=== PATIENT | male | born 1955 | race Caucasian/White ===

== ENCOUNTER 2019-03-18 12:36 | Inpatient (IN) ==
[2019-03-18] MEDS ORDERED: MORPHINE IV ONE (13:07)
--- NOTE | 2019-03-18 13:28 | Diag Imaging Result Doc PS360 ---
EXAM: FEMUR MIN 2 VIEWS RIGHT 03/18/2019 HISTORY: fall, stump injury TECHNIQUE: Right femur two views COMMENT: There has been [id number] amputation. There is no evidence of acute fracture or dislocation. There is extensive atherosclerotic calcification in the external iliac common femoral and superficial femoral arteries. IMPRESSION: No acute bony abnormality. Electronically signed by Nikolai Piedra 03/18/2019 1:26 PM
[2019-03-18 13:50] LABS: BASO# 0.05 X1000 (0.0-0.2); BASO% 0.4 % (0.0-0.8); EOS# 0.08 X1000 (0.0-0.7); EOS% 0.7 % (0.0-10.0); HEMATOCRIT 27.6 % (42.0-52.0); HEMOGLOBIN 8.5 g/dL (14.0-18.0); IMM GRAN# 0.09 X1000 (0.0-0.04); IMM GRAN% 0.7 % (0.0-0.5); LYMPH# 2.18 X1000 (1.2-3.4); LYMPH% 17.9 % (20.5-51.1); MCH 23.9 PG (27-31); MCHC 30.8 g/dL (33-37); MCV 77.7 FL (81-99); MONO# 1.12 X1000 (0.11-0.59); MONO% 9.2 % (1.7-9.3); MPV 8.3 FL (7.4-10.4); NEUT# 8.66 X1000 (1.4-6.5); NEUT% 71.1 % (42.2-75.2); PLT 451 X1000 (130-400); RBC 3.55 XMIL (4.7-6.1); RDW 17.3 % (11.5-14.5); WBC 12.18 X1000 (4.8-10.8)
[2019-03-18 14:47] LABS: AGAP 9; ALB/GLOB RATIO 0.7; ALBUMIN 2.9 g/dL (3.5-5.0); ALKALINE PHOSPHATASE 103 U/L (32-122); BUN 9 mg/dL (8-22); CALCIUM 8.4 mg/dL (8.8-10.2); CHLORIDE 92 mmol/L (98-107); COSMO 253; CREATININE 0.4 mg/dL (0.7-1.2); ESTIMATED GFR > 60; GLUCOSE 90 mg/dL (70-104); GOT 15 U/L (10-34); GPT 8 U/L (10-44); POTASSIUM 4.5 mmol/L (3.5-5.1); SODIUM 127 mmol/L (136-145); TCO2 26 mmol/L (25-35); TOTAL BILIRUBIN 0.21 mg/dL (0.20-1.00)
[2019-03-18 14:59] LABS: INR 1.06; PROTIME 13.9 Seconds (11.0-16.0)
[2019-03-18 15:00] LABS: PTT 36.3 Seconds (22.3-41.8)
--- NOTE | 2019-03-18 15:45 | Diag Imaging Result Doc PS360 ---
EXAM: CHEST-1 VIEW INDICATION: sepsis protocol TECHNIQUE: One view COMPARISON: 02/09/2019 FINDINGS: There is right basilar atelectasis and/or infiltrate and probably fibrosis at the right lung base as well. This is similar to the previous study. There is no discrete pleural fluid collection or pneumothorax. There is a right hilar masslike lesion that has been seen on a few of the recent prior radiographs and is grossly unchanged. Cardiac silhouette is unremarkable. IMPRESSION: 1.Right basilar atelectasis and/or infiltrate and probably a component of fibrosis that is similar to the previous study. 2.Masslike right hilar lesion seen on previous studies appears to be stable. Electronically signed by Sriram Ross 03/18/2019 3:42 PM
--- NOTE | 2019-03-18 16:37 | Diag Imaging Result Doc PS360 ---
EXAM: CT EXT LOWER RIGHT W/O CON INDICATION: r/o osteo TECHNIQUE: COMPARISON: None. FINDINGS: There has been a prior aolqn-[id number]-[id number] amputation. There is demineralization of the visualized portion of the femur that is likely due to the nonweightbearing. There is some irregularity at the site of the amputation at the femoral stump. However, this can simply be postsurgical. By CT, osteomyelitis cannot be excluded. The cortex of the stump posteriorly is very near the skin surface and a bone may be exposed. If so, there is very likely osteomyelitis. There is soft tissue edema at the stump indicating osteomyelitis. There is extensive atherosclerotic calcification. IMPRESSION: Prior amputation of the right leg [id number] with irregularity at the bony stump that could be postsurgical. However, I suspect that there is osteomyelitis as there is soft tissue edema at the stump and the cortex of the bone is very near the skin surface if it is not already exposed. Electronically signed by Sriram Ross 03/18/2019 4:35 PM
[2019-03-18 16:41] LABS: URINE SOURCE CLEAN CATCH
[2019-03-18 16:52] LABS: BILIRUBIN URINE NEGATIVE (NEGATIVE); BLOOD URINE NEGATIVE (NEGATIVE); COLOR YELLOW; GLUCOSE URINE NEGATIVE (NEGATIVE); KETONE URINE NEGATIVE (NEGATIVE); LEUKOCYTES URINE NEGATIVE (NEGATIVE); NITRITE URINE NEGATIVE (NEGATIVE); PROTEIN URINE NEGATIVE (NEGATIVE); TURBIDITY URINE CLEAR (CLEAR); UR EPITHELIAL CELLS <10 /HPF (<10); URINE BACTERIA NEGATIVE /HPF; URINE RBC <10 /HPF (<10); URINE WBC <10 /HPF (<10); UROBILINOGEN URINE NORMAL (NORMAL)
--- NOTE | 2019-03-18 17:13 | PROVIDER DOCUMENTATION ---
This chart was entered by Sarah Marie Scribe, acting as scribe for Nilesh Gipson MD. HPI-Rash/Wound/ReCheck - General Chief Complaint: Sores/Lesions Stated Complaint: SORE ON RT KNEE Time Seen by Provider: 03/18/19 12:53 Source: patient, family Allergies/Adverse Reactions: Allergies Allergy/AdvReac Type Severity Reaction Status Date / Time No Known Allergies Allergy Verified 03/18/19 12:50 Home Medications: Home Medication List Medication Instructions Recorded Confirmed Last Taken Type Hydrocodone/Acetaminophen 1 tab PO TID 02/09/19 03/18/19 03/18/19 History [Hydrocodone-Acetamin 10-325 mg] Levetiracetam 500 mg PO BID 03/18/19 03/18/19 03/18/19 History - History of Present Illness-Dermatology Nature of Presenting Problem: 63 yowm presents to the ed with family. pt sts had a fall and hit hit RAKA stump 2 weeks prior and has ulceration with drainage that will not heal. pt has lung cancer that has mets and last radiation was 02/25/19. pt has norco at home but stsis not helping with pain Location: reports: lower extremity (rt stump) Quality: reports: painful Severity: reports: moderate Onset/Duration: reports: other (2 weeks) Timing: reports: still present, constant, getting worse Context/Associated Symptoms: reports: tender area (with ulceration) Identifiable cause?: Yes (fall) Locality of [place]: Home Similar Symptoms Previously?: Yes Recently seen or treated by another doctor?: Yes Review of Systems - Adult - REVIEW OF SYSTEMS - ADULT Constitutional: denies: chills, fever Eyes: reports: no symptoms reported Ears, Nose, Mouth & Throat: reports: no symptoms reported Cardiovascular: denies: chest pain, palpitations Respiratory: denies: cough, shortness of breath, wheezing Gastrointestinal: denies: diarrhea, nausea, vomiting Genitourinary: reports: no symptoms reported Musculoskeletal: reports: no symptoms reported Integumentary: reports: see HPI, skin sores/ulcer Neurological: reports: no symptoms reported Psychiatric: reports: no symptoms reported Endocrine: reports: no symptoms reported Hematologic/Lymphatic: reports: no symptoms reported Allergic/Immunologic: reports: no symptoms reported All Other Systems: Reviewed and Negative Past History - Adult - PAST MEDICAL HISTORY-ADULT Review of Records: reports: Old Records Reviewed, Nursing Assessment Review, Medications Reviewed, Social history reviewed & non-contributory. Major Childhood Illnesses: reports: denies history Cardiovascular: reports: denies history Respiratory: reports: asthma, COPD, cancer (lung with mets), pneumonia, sleep a pnea Gastrointestinal: reports: GERD Genitourinary: reports: denies history Musculoskeletal: reports: arthritis, chronic pain Neurological: reports: denies history Psychiatric: reports: denies history Endocrine/Immune: reports: immunosuppression Other Conditions: reports: denies history Additional History: lung cancer with mets - PRIOR SURGERIES/PROCEDURES Surgical/Procedure History: reports: appendectomy, orthopedic (extremity) (RAKA) - IMMUNIZATION STATUS Childhood Immunizations: See Nurse Assessment Flu Vaccine: See Nurse Assessment - FAMILY HISTORY Family History: reviewed, not pertinent - SOCIAL HISTORY Smoking: cigarettes, greater than 1 pack/day Provider spent 3-5 mins advising pt. on dangers of tobacco.: Discussed manners to quit use, and f/u contacts for add'l counseling. Substance Use: alcohol Alcohol Use Frequency: every day Number of drinks per typical drinking period:: 5-10 drinks Living Situation: family Physical Exam-General - PHYSICAL EXAM-ADULT Initial Vital Signs Reviewed: Yes - CONSTITUTIONAL General Appearance: appears well, alert, no apparent distress, thin - EYES Eyes: PERRL/EOMI, pink conjunctivae - HEAD, EARS, NOSE, MOUTH & THROAT HENMT: moist mucous membranes, dental decay - NECK Neck: full range of motion, normal inspection - RESPIRATORY Respiratory: chest non-tender, lungs clear, normal breath sounds - CARDIOVASCULAR Cardiovascular: tachycardia (116) - CHEST (BREASTS) Chest/Breast: deferred - GASTROINTESTINAL (ABDOMEN) Abdominal Exam: normal bowel sounds, non tender, soft - GENITOURINARY Male Genitalia: deferred Rectal Exam: deferred Hemoccult Exam: deferred - MUSCULOSKELETAL Back Exam: no CVA tenderness, no vertebral tenderness Extremity: normal range of motion, tenderness (rt stump), other (RAKA with ulce ration noted to stump) - SKIN Integumentary: swelling (rt stump with ulceration), tenderness (rt stump) - NEUROLOGIC Neurologic: grossly normal - PSYCHIATRIC Psych/Mental Status: normal mood/affect, normal thought content, normal thought process, oriented x 3 Progress - PLAN OF CARE/RESULTS Progress/Plan/Lab Results: Vital Signs - 8 hr 12/20/19 12:40 Temperature 97.6 F Pulse Rate 116 H Respiratory Rate 18 Blood Pressure 106/56 O2 Sat by Pulse Oximetry 95 Laboratory Results - last 24 hr 03/18/19 03/18/19 03/18/19 13:30 13:30 13:30 WBC 12.18 H RBC 3.55 L Hgb 8.5 L Hct 27.6 L MCV 77.7 L MCH 23.9 L MCHC 30.8 L RDW Std Deviation 17.3 H Plt Count 451 H MPV 8.3 Immature Gran % (Auto) 0.7 H Neut % (Auto) 71.1 Lymph % (Auto) 17.9 L [place] % (Auto) 9.2 Eos % (Auto) 0.7 Baso % (Auto) 0.4 Immature Gran # (Auto) 0.09 H Neut # (Auto) 8.66 H Lymph # (Auto) 2.18 [place] # (Auto) 1.12 H Eos # (Auto) 0.08 Baso # (Auto) 0.05 ESR 121 H PT INR PTT (Actin FS) Sodium 127 L Potassium 4.5 Chloride 92 L Carbon Dioxide 26 Anion Gap 9 BUN 9 Creatinine 0.4 L Estimated GFR/1.73 m2 > 60 BUN/Creatinine Ratio 23 Glucose 90 Calculated Osmolality 253 Calcium 8.4 L Total Bilirubin 0.21 AST 15 ALT 8 L Alkaline Phosphatase 103 Creatine Kinase Troponin T Total Protein 7.0 Albumin 2.9 L Globulin 4.1 Albumin/Globulin Ratio 0.7 Plasma Lactate Urine Source Urine Color Urine Turbidity Urine pH Ur Specific [place] Urine Protein Ur Glucose (Stick) Ur Ketones (Stick) Urine Blood Urine Nitrite Urine Bilirubin Urobilinogen Dipstick Urine Leukocytes Urine WBC (Auto) Urine RBC (Auto) U Epithel Cells (Auto) Urine Bacteria (Auto) 03/18/19 03/18/19 03/18/19 13:30 13:30 13:30 WBC RBC Hgb Hct MCV MCH MCHC RDW Std Deviation Plt Count MPV Immature Gran % (Auto) Neut % (Auto) Lymph % (Auto) [place] % (Auto) Eos % (Auto) Baso % (Auto) Immature Gran # (Auto) Neut # (Auto) Lymph # (Auto) [place] # (Auto) Eos # (Auto) Baso # (Auto) ESR PT 13.9 INR 1.06 PTT (Actin FS) 36.3 Sodium Potassium Chloride Carbon Dioxide Anion Gap BUN Creatinine Estimated GFR/1.73 m2 BUN/Creatinine Ratio Glucose Calculated Osmolality Calcium Total Bilirubin AST ALT Alkaline Phosphatase Creatine Kinase 22 L Troponin T < 0.010 Total Protein Albumin Globulin Albumin/Globulin Ratio Plasma Lactate Urine Source Urine Color Urine Turbidity Urine pH Ur Specific [place] Urine Protein Ur Glucose (Stick) Ur Ketones (Stick) Urine Blood Urine Nitrite Urine Bilirubin Urobilinogen Dipstick Urine Leukocytes Urine WBC (Auto) Urine RBC (Auto) U Epithel Cells (Auto) Urine Bacteria (Auto) 03/18/19 03/18/19 15:10 16:37 WBC RBC Hgb Hct MCV MCH MCHC RDW Std Deviation Plt Count MPV Immature Gran % (Auto) Neut % (Auto) Lymph % (Auto) [place] % (Auto) Eos % (Auto) Baso % (Auto) Immature Gran # (Auto) Neut # (Auto) Lymph # (Auto) [place] # (Auto) Eos # (Auto) Baso # (Auto) ESR PT INR PTT (Actin FS) Sodium Potassium Chloride Carbon Dioxide Anion Gap BUN Creatinine Estimated GFR/1.73 m2 BUN/Creatinine Ratio Glucose Calculated Osmolality Calcium Total Bilirubin AST ALT Alkaline Phosphatase Creatine Kinase Troponin T Total Protein Albumin Globulin Albumin/Globulin Ratio Plasma Lactate 0.7 Urine Source CLEAN CATCH Urine Color YELLOW Urine Turbidity CLEAR Urine pH 7.0 Ur Specific [place] 1.010 Urine Protein NEGATIVE Ur Glucose (Stick) NEGATIVE Ur Ketones (Stick) NEGATIVE Urine Blood NEGATIVE Urine Nitrite NEGATIVE Urine Bilirubin NEGATIVE Urobilinogen Dipstick NORMAL Urine Leukocytes NEGATIVE Urine WBC (Auto) <10 Urine RBC (Auto) <10 U Epithel Cells (Auto) <10 Urine Bacteria (Auto) NEGATIVE Orders Category Date Time Status Cardiac Monitoring DIRECTED Care 03/18/19 14:39 Active IV Insertion ORDERED Care 03/18/19 14:39 Completed Notify MD of + Sepsis Screen NOW Care 03/18/19 14:39 Active Notify Physician As Ordered Care 03/18/19 14:39 Active CHEST-1 VIEW [RAD] Stat Exams 03/18/19 14:[address] EXT LOWER RIGHT W/O CON [CT] Stat Exams 03/18/19 15:52 Completed FEMUR MIN 2 VIEWS RIGHT [RAD] Stat Exams 03/18/19 13:06 Completed BLOOD CULTURE [BLDCUL] Stat Lab 03/18/19 14:35 Results CBC WITH DIFF [HEME] Stat Lab 03/18/19 13:30 Completed CK PROFILE [SP CHEM] Stat Lab 03/18/19 13:30 Completed CMP [COMPREHENSIVE METABOLIC PANEL] [CHEM] Stat Lab 03/18/19 13:30 Completed LACTATE, PLASMA [CHEM] Lab 03/18/19 17:45 Uncollected LACTATE, PLASMA [CHEM] Lab 03/18/19 20:45 Uncollected LACTATE, PLASMA [CHEM] Q3H Lab 03/18/19 15:10 Completed PROTIME WITH INR [COAG] Stat Lab 03/18/19 13:30 Completed PTT [COAG] Stat Lab 03/18/19 13:30 Completed SED RATE [HEME] Stat Lab 03/18/19 13:30 Completed TROPONIN T Stat Lab 03/18/19 13:30 Completed URINALYSIS W/POSS RFLX CULT [URINALYSIS] Stat Lab 03/18/19 16:37 Completed Morphine Med 03/18/19 13:07 Discontinued 4 mg IV NOW ONE Oxygen Device Stat Oth 03/18/19 14:39 Active Result Diagrams: 03/18/19 13:30 03/18/19 13:30 - XRAY 1 XRAY: Right XRAY Study: Femur Impression: See EMR Report (EXAM: FEMUR MIN 2 VIEWS RIGHT 03/18/2019 HISTORY: fall, stump injury TECHNIQUE: Right femur two views COMMENT: There has been emair-sqk-pygc amputation. There is no evidence of acute fracture or dislocation. There is extensive atherosclerotic calcification in the external iliac common femoral and superficial femoral arteries. IMPRESSION: No acute bony abnormality. Electronically signed by Nikolai Piedra 03/18/2019 1:26 PM 03/18/19 1326 Interpreting Physician: Nikolai Piedra MD Dictated Date/Time: 03/18/19 1325 cc: Nilesh Gipson MD; Ortiz Vazquez MD) 2 XRAY: Bilateral XRAY Study: Chest Impression: See EMR Report (EXAM: CHEST-1 VIEW INDICATION: sepsis protocol TECHNIQUE: One view COMPARISON: 02/09/2019 FINDINGS: There is right basilar atelectasis and/or infiltrate and probably fibrosis at the right lung base as well. This is similar to the previous study. There is no discrete pleural fluid collection or pneumothorax. There is a right hilar masslike lesion that has been seen on a few of the recent prior radiographs and is grossly unchanged. Cardiac silhouette is unremarkable. IMPRESSION: 1.Right basilar atelectasis and/or infiltrate and probably a component of fibrosis that is similar to the previous study. 2.Masslike right hilar lesion seen on previous studies appears to be stable. Electronically signed by Sriram Ross 03/18/2019 3:42 PM 03/18/19 1542 Interpreting Physician: Sriram Ross MD Dictated Date/Time: 03/18/19 1540 cc: Nilesh Gipson MD; Ortiz Vazquez MD) - CT/MRI 1 CT Study: Lower Ext Impression: See EMR Report (EXAM: CT EXT LOWER RIGHT W/O CON INDICATION: r/o osteo TECHNIQUE: COMPARISON: None. FINDINGS: There has been a prior aeeyb-cex-cuim amputation. There is demineralization of the visualized portion of the femur that is likely due to the nonweightbearing. There is some irregularity at the site of the amputation at the femoral stump. However, this can simply be postsurgical. By CT, osteomyelitis cannot be excluded. The cortex of the stump posteriorly is very near the skin surface and a bone may be exposed. If so, there is very likely osteomyelitis. There is soft tissue edema at the stump indicating osteomyelitis. There is extensive atherosclerotic calcification. IMPRESSION: Prior amputation of the right leg [id number] with irregularity at the bony stump that could be postsurgical. However, I suspect that there is osteomyelitis as there is soft tissue edema at the stump and the cortex of the bone is very near the skin surface if it is not already exposed. Electronically signed by Sriram Ross 03/18/2019 4:35 PM 03/18/19 1635 Interpreting Physician: Sriram Ross MD Dictated Date/Time: 1 05/19/18 1626 cc: Nilesh Gipson MD; Ortiz Vazquez MD) - CONSULTS/PCP/HOSPITALIST Notification #1 *Consult/PCP/Hospitalist*: hospitalist Time Discussed: 17:10 (spoke with dona) Consult Disposition: Admit Departure - Departure Date of Disposition Decision: 03/18/19 Time of Disposition Decision: 17:12 DIAGNOSIS: Osteomyelitis of right femur Disposition: ADMITTED INPATIENT 09 Certified Medical Emergency: Emergent Condition: Good Additional Instructions: ED Follow Up Instructions: You have been treated by a care provider in the Emergency Department. These instructions are being provided to you so you can have an understanding of how to care for yourself upon discharge. Upon discharge from the Emergency Department, you are responsible for making arrangements for follow-up care by a physician of your choice. Take all prescribed medications as directed. Return to the Emergency Department immediately for any new or worsening symptoms. You may call the Physician Referral phone number at [phone] to obtain a list of Physicians who are taking new patients. Referrals and Follow-Ups: Ortiz Vazquez MD [Primary Care Provider] - Discharge Education: Steps to Quit Smoking, Vusc-kf-Szkd - Critical Care Note This patient required my direct & personal management of CC.: No Attestation - Physician/ EDGAR Attestation Patient care was provided by Advanced Practice Provider:: No The physician spent face to face time with patient:: Yes Advanced Practice Provider documentation review:: Supervising physician onsite and consulted in the evaluation and care of this patient. The physician did have a face to face encounter with the patient. This chart was documented by the indicated scribe, (Sarah Marie Scribe) and accurately reflects the services I performed and decisions made by me, Nilesh Gipson MD, as attested by the provider's signature.
[2019-03-18] MEDS ORDERED: VANCOMYCIN IV PER PHARMACY MISC SCH (17:15)
[2019-03-18] MEDS ORDERED: TYLENOL PO PRN ×2 (18:28→18:37)
[2019-03-18] MEDS ORDERED: ZOFRAN IV PRN ×2 (18:28→18:37)
[2019-03-18] MEDS ORDERED: DILAUDID IV ONE (18:52)
[2019-03-18] MEDS ORDERED: VANCOMYCIN 1,500 MG in NS 250 ML IV ONE (20:00)
--- NOTE | 2019-03-18 20:29 | HISTORY AND PHYSICAL ---
PRIMARY CARE PHYSICIAN: Dr. Vazquez. CHIEF COMPLAINT: Of a fall 2 weeks ago hitting his right AKA now has an ulceration to the posterior AKA with drainage to the area also noted. HISTORY OF PRESENTING ILLNESS: This is a 63-year-old male who presents to [facility] with complaints of an ulceration to his right AKA to the posterior underside with some drainage after he fell 2 weeks ago and the area has progressively worsened. We did a CT of the lower extremity that showed the prior amputation of the right leg above the knee with irregularity at the bony stump that could be postsurgical, however I suspect that there is osteomyelitis as there is soft tissue edema at the stump and the cortex of the bone is very near the skin surface if it is not already exposed. His laboratory data showed a white blood cell count of 12.18, his sodium was 127 so he will be admitted for further evaluation and treatment. PAST MEDICAL HISTORY: 1. He is currently being treated for lung cancer with metastases to the bone, brain and neck, last treatment 02/25/2019 and is scheduled for a treatment on Thursday with his oncologist . 2. COPD, sleep apnea, GERD, chronic pain and immunosuppression and seizures. PAST SURGICAL HISTORY: Appendectomy and a right AKA. FAMILY HISTORY: Reviewed and noncontributory. SOCIAL HISTORY: Currently lives with family. He was a 2 pack a day smoker up until December of this year and has decreased down to 1 pack a day. He was a 6 pack of beer day drinker up until December and then now he only drinks occasionally. Illicit drug use none. ALLERGIES: He has no known drug allergies. HOME MEDICATIONS: A current list will need to be obtained, reconciled, reviewed and restarted as appropriate. Will place an order for nursing to update and confirm home medications. LABORATORY DATA: Showed a white blood cell count of 12.18, hemoglobin 8.5, hematocrit 27.6, platelets 451,000. PT and INR 13.9 and 1.06. Sodium of 127, potassium 4.5, chloride 92, CO2 26, BUN of 9, creatinine 0.4, glucose of 90. Cardiac enzyme was negative. Plasma lactate of 0.7. Urinalysis was negative. Right femur x-ray showed no acute bony abnormality. Chest x-ray showed right basilar atelectasis and/or infiltrate and probably a component of fibrosis that is similar to the previous study and a masslike right hilar lesion seen on the previous study appears to be stable. Right lower extremity CT showed an impression of a prior amputation of the right leg above the knee with irregularity at the bony stump that could be postsurgical however it is suspected of osteomyelitis as there is soft tissue edema at the stump and the cortex of the bone is very near the skin surface if it is not already exposed. REVIEW OF SYSTEMS: He denied any fever, chills, blurred vision, dizziness, chest pain, coughing, shortness of breath. He denied any abdominal pain, constipation, diarrhea, burning or hurting with urination. He does have pain to his right AKA area where the ulceration is. PHYSICAL EXAMINATION: On arrival he had a temperature of 97.6 degrees, pulse 116, respirations 18, blood pressure 106/56, saturating 95% on room air. GENERAL: This is a 63-year-old male who is sitting up in the bed and answers questions appropriately. HEENT: Normocephalic, atraumatic. Normal ENT inspection. Oropharynx and nares are clear. Pupils are equal, round, reactive to light and accommodation. Extraocular movements are intact. NECK: The patient is noted to have a tumor and growth on the right side of his neck that is the metastasis of his cancer. Normal range of motion noted. LUNGS: Clear to auscultation bilaterally with equal lung expansion and chest wall movement. HEART: Some mild tachycardia noted but no murmurs, rubs, or gallops. ABDOMEN: Soft, nontender, nondistended. Bowel sounds are present x4 quadrants. EXTREMITIES: He has a right AKA that has an ulceration to the end and posterior area of the stump with some surrounding erythema, some mild drainage noted as well, tenderness to palpation, otherwise moves extremities well. NEUROLOGICAL: The cranial nerves 2-12 appear grossly intact. ASSESSMENT: 1. Status post fall 2 weeks ago. 2. A right above-knee amputation ulceration with possible osteomyelitis. 3. Mild leukocytosis. 4. Hyponatremia. 5. Tobacco abuse. OUR PLAN: He will be admitted to the surgical unit, placed on telemetry. Will consult Infectious Disease and surgery. Placed on a diabetic diet. Place him on vancomycin per pharmacy protocol, Zosyn 3.375 g IV q.6, will do a wound culture, will do serial lactates. Check a TSH in the a.m. and a CBC, CMP. Further orders after seen by attending. Dictated by LUKE Coleman for Kolton Cao MD cc: LUKE Coleman MD Dr. Awoniyi
[2019-03-18] MEDS ORDERED: KEPPRA PO SCH (21:00)
[2019-03-18] MEDS ORDERED: NORCO-10 PO SCH (21:00)
[2019-03-18] MEDS: KEPPRA PO SCH (21:50)
[2019-03-18] MEDS: NORCO-10 PO SCH (22:10)
--- NOTE | 2019-03-18 22:25 | HISTORY AND PHYSICAL ---
The patient came in because he has a nonhealing ulcer on his right AKA stump. He is 63. He has a history of lung cancer with diffuse metastasis. I do not know if it is lung or a lymphoma. He still smokes. He is getting active chemo with Keytruda. He has a neck mass. In any case, he has extensive metastases and is getting treatment, but he fell and injured his right AKA stump area about 2 weeks ago. He has got an open ulceration with a dry kind of wound, and there is suggestion of osteo on the tip of his stump. Dr. Welhc has worked on him previously. He will be admitted for IV antibiotics and decision about debridement versus long-term IV antibiotics. We will get a surgical consult and ID consult. This is a [id number] encounter note with Helga Murrell. cc: Kolton Cao MD
[2019-03-19] MEDS: ZOSYN 3.375 GM in NS 50 ML IV SCH ×4 (00:15→18:10)
[2019-03-19] MEDS: DILAUDID IV PRN ×2 (00:20→05:40)
[2019-03-19 07:03] LABS: BASO# 0.05 X1000 (0.0-0.2); BASO% 0.5 % (0.0-0.8); EOS# 0.07 X1000 (0.0-0.7); EOS% 0.7 % (0.0-10.0); HEMATOCRIT 26.8 % (42.0-52.0); HEMOGLOBIN 8.1 g/dL (14.0-18.0); IMM GRAN# 0.06 X1000 (0.0-0.04); IMM GRAN% 0.6 % (0.0-0.5); LYMPH% 15.1 % (20.5-51.1); MCH 23.6 PG (27-31); MCHC 30.2 g/dL (33-37); MCV 78.1 FL (81-99); MONO# 0.93 X1000 (0.11-0.59); MONO% 9.3 % (1.7-9.3); MPV 8.4 FL (7.4-10.4); NEUT# 7.35 X1000 (1.4-6.5); NEUT% 73.8 % (42.2-75.2); PLT 428 X1000 (130-400); RBC 3.43 XMIL (4.7-6.1); RDW 17.3 % (11.5-14.5); WBC 9.96 X1000 (4.8-10.8)
[2019-03-19 07:24] LABS: AGAP 10; ALB/GLOB RATIO 0.7; ALBUMIN 2.5 g/dL (3.5-5.0); ALKALINE PHOSPHATASE 92 U/L (32-122); BUN 5 mg/dL (8-22); CALCIUM 7.6 mg/dL (8.8-10.2); CHLORIDE 95 mmol/L (98-107); COSMO 259; CREATININE 0.3 mg/dL (0.7-1.2); ESTIMATED GFR > 60; GLUCOSE 84 mg/dL (70-104); GOT 12 U/L (10-34); GPT 6 U/L (10-44); POTASSIUM 4.2 mmol/L (3.5-5.1); SODIUM 131 mmol/L (136-145); TCO2 26 mmol/L (25-35); TOTAL PROTEIN 6.3 g/dL (6.3-8.3)
[2019-03-19] MEDS: VANCOMYCIN 1,100 MG in NS 250 ML IV SCH ×2 (10:52→22:34)
[2019-03-19] MEDS: KEPPRA PO SCH ×2 (11:07→22:35)
[2019-03-19] MEDS: NORCO-10 PO SCH ×3 (11:07→22:20)
[2019-03-19] MEDS: NS 1,000 ML IV SCH (11:07)
--- NOTE | 2019-03-19 19:13 | CONSULTATION ---
DATE OF CONSULTATION: 03/19/2019 Mr. Bob Mejia is a 63-year-old white male who is admitted through the emergency department with pain and redness involving his right teegw-tis-ksyt amputation stump. He was brought by his family and states that the patient had a fall and hit his right tgmtt-nwy-quzu amputation stump 2 weeks prior to his presentation which created an ulcer and some drainage from that area that will not heal. He was admitted by our hospitalist and we were asked to evaluate his right hhkhn-eqk-tuet amputation stump. PAST MEDICAL HISTORY: He has lung cancer with metastatic disease. He had radiation 02/25/2019. He has asthma, COPD, pneumonia, gastroesophageal reflux disease, arthritis with chronic pain, immunosuppression, he has an appendectomy and right onmva-klp-oows amputation. He has also had a femoral-femoral arterial bypass graft by Dr. Welch. SOCIAL HISTORY: Continues to smoke at least a pack of cigarettes a day. Uses alcohol daily. FAMILY HISTORY: Was reviewed is noncontributory. REVIEW OF SYSTEMS: A 14-point review of systems was reviewed and was negative except for the history of present illness. PHYSICAL EXAMINATION: On exam, his temperature is 97.6 degrees, pulse rate was 116, blood pressure 106/56, O2 saturation 95%. He is 5 feet 6 inches, weighs 108 pounds. Mr. Mejia is a small, slim male who is awake, cooperative. He has a right lhzvg-wlr-rkmn amputation. He still has his left lower extremity. He has no jaundice. No oral lesions. No cervical or supraclavicular lymphadenopathy. His heart has a regular rate. Lungs had some expiratory wheezing. He had no significant shortness of breath. His abdomen was soft, nontender without palpable mass. He has scars in both groins. He has a palpable femoral-femoral arterial bypass graft. I am not sure if there is flow in this graft. I did not feel pulse. I do not feel right femoral pulse. I do feel pulse on the left femoral area. He has his left leg without evidence of any ischemic ulcers. His right ekbfi-dem-smkw amputation stump has an ulcer at the end of the stump and redness and pain. Neurologically, he has no focal deficit. IMPRESSION: Chronic open wound with pain and now redness at the end of his right jitjy-lmr-rpqm amputation stump. He has a history of femoral-femoral arterial bypass graft. I could not feel a pulse on the right groin but his right uihjb-pxz-ydui amputation stump is warm and the skin has hair involving it. PLAN: He will need revision of his right pjdzj-jub-fuge amputation stump most likely by bringing it higher and removing more of the femur. I will notify Dr. Welch of his admission this coming Thursday. In the meantime, I agree with IV antibiotics and local wound care. His white blood cell count is normal today, his hematocrit is 27%. Electrolytes are within normal limits. cc: Dominique Marie MD
--- NOTE | 2019-03-19 23:55 | PROGRESS NOTE ---
DATE: 03/19/2019 SUBJECTIVE: The patient seems sleepy. He is not as upset. Pain seems under control. OBJECTIVE: Blood pressure 93/58, heart rate of 80, respiratory rate 19, temperature 98 degrees, afebrile.Cardiovascular: Regular rate and rhythm. Pulmonary: Bilateral breath sounds, clear to auscultation. GI: Soft, nontender, nondistended. Bowel sounds are positive. LABORATORY DATA: White count 9.9, hemoglobin and hematocrit 8 and 26, platelets 428,000. Sodium is up to 131 from 127. Microbiology has not grown out anything yet. ASSESSMENT AND PLAN: 1. Right osteomyelitis. We will continue to monitor with antibiotics. I have consulted Dr. Marie, waiting on his final recommendations, but there was some discussion he would need surgery. He is on vancomycin and Zosyn for the time being. 2. Castleman disease, diffuse large B cell lymphoma. I think he is still getting treatment. We will continue to monitor that. 3. Disposition pending his clinical status. 4. Hypotension, may be related to protein-calorie malnutrition. We will continue to follow closely. cc: Kolton Cao MD
[2019-03-20] MEDS: ZOSYN 3.375 GM in NS 50 ML IV SCH ×3 (00:10→05:33)
[2019-03-20] MEDS: DILAUDID IV PRN ×2 (04:01→15:46)
[2019-03-20 07:25] LABS: BASO# 0.04 X1000 (0.0-0.2); BASO% 0.5 % (0.0-0.8); EOS# 0.09 X1000 (0.0-0.7); EOS% 1.2 % (0.0-10.0); HEMATOCRIT 25.4 % (42.0-52.0); HEMOGLOBIN 7.5 g/dL (14.0-18.0); IMM GRAN# 0.03 X1000 (0.0-0.04); IMM GRAN% 0.4 % (0.0-0.5); LYMPH# 1.46 X1000 (1.2-3.4); LYMPH% 19.3 % (20.5-51.1); MCH 23.4 PG (27-31); MCHC 29.5 g/dL (33-37); MCV 79.4 FL (81-99); MONO# 0.83 X1000 (0.11-0.59); MPV 8.2 FL (7.4-10.4); NEUT# 5.12 X1000 (1.4-6.5); NEUT% 67.6 % (42.2-75.2); PLT 396 X1000 (130-400); RDW 17.2 % (11.5-14.5); WBC 7.57 X1000 (4.8-10.8)
[2019-03-20 07:39] LABS: AGAP 9; BUN 6 mg/dL (8-22); CALCIUM 7.4 mg/dL (8.8-10.2); CHLORIDE 100 mmol/L (98-107); COSMO 265; CREATININE 0.6 mg/dL (0.7-1.2); ESTIMATED GFR > 60; GLUCOSE 85 mg/dL (70-104); POTASSIUM 3.8 mmol/L (3.5-5.1); SODIUM 134 mmol/L (136-145); TCO2 25 mmol/L (25-35)
[2019-03-20] MEDS: NORCO-10 PO SCH ×3 (07:57→14:56)
[2019-03-20] MEDS: KEPPRA PO SCH ×2 (09:33→21:22)
[2019-03-20] MEDS: MAXIPIME 1 GM in NS 50 ML IV SCH ×2 (09:37→21:22)
[2019-03-20] MEDS: NS 1,000 ML IV SCH ×3 (09:37→18:44)
[2019-03-20] MEDS: VANCOMYCIN 1,100 MG in NS 250 ML IV SCH (10:19)
--- NOTE | 2019-03-20 11:01 | INFECTIOUS DISEASE CONSULT REP ---
DATE: 03/20/2019 CONCLUSION: The patient has right leg osteomyelitis. The patient may have a right basilar pneumonia versus atelectasis. RECOMMENDATIONS: I agree with treating the patient with vancomycin. I have discontinued Zosyn, and started the patient on cefepime. I am doing this because there is some fairly recent evidence to show that the combination of vancomycin and Zosyn is more nephrotoxic than the combination of vancomycin and cefepime. I have ordered a noncontrasted CT scan of the chest to determine if the right basilar finding is either due to atelectasis or pneumonia. I am unable to obtain a history from the patient. He has metastatic lung cancer, which has involved the brain, and he has had surgery on his brain, and his memory is very poor, and he is pretty much unable to answer questions about his health. PRESENT ILLNESS: The patient is unable to provide a history. The information I did get was from the computer. He has developed an ulcerated area on the distal right leg, which has been amputated. The bone is palpable. The patient's CT scan also shows that there is osteomyelitis in the distal right leg. The patient's CBC shows a white count of 7570, hemoglobin 7.5, platelet count 396,000. Creatinine is 0.6, GFR is greater than 60. Urinalysis shows no white cells or bacteria. Blood cultures are negative. Culture from the right leg is pending. CT scan of the leg shows osteomyelitis. Chest x-ray shows a right hilar mass and a right basilar atelectasis/pneumonia. The patient's CBC shows a white count of 7570, hemoglobin 7.5, platelet count 396,000. Creatinine is 0.6. GFR is greater than 60. Urinalysis was negative for bacteria or white blood cells. Blood cultures are negative. Culture from the patient's right leg is pending. CT scan of the leg showed osteomyelitis. Chest x-ray shows a right hilar mass with a right basilar atelectasis/pneumonia. REVIEW OF SYSTEMS: I was unable to obtain that from the patient. PREVIOUS HOSPITALIZATIONS AND OPERATIONS: The patient has had an appendectomy, a right above-the- knee amputation, and a craniotomy due to metastatic brain tumor. MEDICAL DISEASES: Positive for metastatic lung cancer, chronic obstructive pulmonary disease, sleep apnea, gastroesophageal reflux disease, chronic pain, and seizures. FAMILY HISTORY: Unknown by the patient. SOCIAL HISTORY: The patient currently lives with his family. He smokes cigarettes. He also was a heavy consumer of alcoholic beverages, but he does not use illicit drugs. ALLERGIES: The patient has no known drug allergies. MEDICATIONS: Medications taken at home are hydrocodone and levetiracetam. PHYSICAL EXAMINATION: Vital Signs: Temperature is 98 degrees, pulse 86, respirations 14, blood pressure is 101/58. The patient is 5 feet 6 inches tall, and weighs 95 pounds. General: This is a chronically ill-appearing and malnourished, middle-aged male. He is in no acute distress. HEENT: He can hear my spoken words and see near objects. The left side of his head where he had his craniotomy is not showing any drainage or erythema. Neck: No meningismus. Lungs: Clear to auscultation. Cardiovascular: Heart rate is regular. Abdomen: Soft and nontender. Thorax: The patient has increased AP diameter of the chest. Abdomen: Soft and nontender. Neurologic: The patient is awake. He can move his extremities. There is no tremor. His memory as regarding his medical history was very poor. Extremities: Both legs and arms have marked loss of muscle. The right leg distally has an ulcerated area through which bone can be palpated, and there is some purulent drainage. Thank you for the consult. cc: Hemal Bernal MD
--- NOTE | 2019-03-20 11:09 | PROGRESS NOTE ---
DATE: 03/20/2019 SUBJECTIVE: Mr. Bob Aguilar is a 63-year-old white male who has metastatic lung cancer and is being treated for that with chemotherapy and actually his next round of chemotherapy is scheduled for this week. However, he fell on his right bqxpv-wnu-bxgr amputation stump. He has developed an open wound at the tip of the above the knee amputation stump with his femur at the base of this wound. He had surrounding cellulitis which is improved over the last 24 hours on IV antibiotics, but he still has pain and bone at the base of his wound. I feel that his right dqrqd-zqy-qnip amputation stump we will have to be the revised surgically. OBJECTIVE: His heart rate is 86, blood pressure 105/58. O2 saturation is 100%, and he is afebrile on IV antibiotics. DIAGNOSTIC DATA: His white blood cell count is now normal. His hematocrit is 25%. Electrolytes are within normal limits. PLAN: He has had a previous femoral-femoral arterial bypass graft by Dr. Welch. I could not feel a palpable femoral pulse, but it appears that he has good blood supply to his right above-the- knee amputation stump because there is hair on his thigh, and the stump is warm. Dr. Welch returns tomorrow with Dr. Jameson to cover our practice during . I will notify Dr. Welch of his admission so that he can make further plans for Mr. Aguilar. cc: Dominique Marie MD
--- NOTE | 2019-03-20 13:38 | Diag Imaging Result Doc PS360 ---
EXAM: CT THORAX W/O CONTRAST INDICATION: RLL pneumonia and/or atelectasis TECHNIQUE: This exam was performed using automated exposure control, adjustment of mA or kV according to patient size, and/or use of iterative reconstruction technique. COMPARISON: None. FINDINGS: There is advanced pulmonary emphysema with an apical predominance. There is extensive bronchial mucous plugging involving the right lower lobe with associated marked right lower lobe atelectasis. In the collapsed portion of the right lower lobe, there is ill-defined vaguely rounded low density at the posterior medial aspect of the right lower lobe. It abuts the chest wall. It is unclear if this is a loculated collection in the pleural space or in the actual lung parenchyma, especially with no IV contrast. However, pulmonary abscess or loculated empyema cannot be excluded on this unenhanced study. It measures approximately 6.5 x 4.6 cm axially. An underlying mass is also a consideration. In the left upper lobe on image 41 of series 3 there is a spiculated nodule measuring 9.6 mm. The morphology of this nodule is suspicious for potential neoplasm. At least, an initial follow-up chest CT in 3 months if not a PET scan is recommended based on Fleischner Society criteria. There is no cardiomegaly. There are calcified mediastinal and hilar lymph nodes indicating prior granulomatous disease. There is mild to moderate mediastinal lymphadenopathy that is nonspecific and could be reactive. At the right iliac crest, there is a partially imaged expansile lytic bone lesion that is highly suspicious for neoplasm, likely a metastatic focus. There is cortical disruption. The visualized portion of the mass measures 7.0 x 3.4 cm axially. IMPRESSION: 1.Advanced pulmonary emphysema. 2.Right lower lobe bronchial mucous plugging with associated marked right lower lobe atelectasis. 3.Vaguely rounded low density focus in the right lower lobe that could either represent a mass, pulmonary abscess, or loculated empyema. Further evaluation is limited with no IV contrast. 4.Suspicious spiculated nodule in the left upper lobe. 5.Nonspecific mediastinal lymphadenopathy. 6.Expansile lytic lesion at the right iliac crest that is highly suspicious for neoplasm, likely metastatic disease. Electronically signed by Sriram Ross 03/20/2019 1:35 PM
--- NOTE | 2019-03-20 17:48 | PROGRESS NOTE ---
DATE: 03/20/2019 SUBJECTIVE: The patient has no major complaints. He looks more awake, alert. OBJECTIVE: Blood pressure is 113/70, heart rate of 83, respiratory rate of 16, temperature 99.3 degrees.Cardiovascular: Regular rate and rhythm. Pulmonary: Bilateral breath sounds clear to auscultation. GI: Soft, nontender, nondistended. Bowel sounds are positive. LABORATORY DATA: White count is down to 7.5, hemoglobin and hematocrit 7.5 and 25, platelets 396,000. Basic looked basically okay. PROBLEM LIST: 1. Right osteomyelitis of his above-knee amputation stump presumably bone scan pending. Dr. Marie is evaluating and we may pursue surgical intervention . Dr. Welch will evaluate tomorrow and see how he does. Dr. Bernal has evaluated the patient and he is recommending cefepime and vancomycin because vanc and Zosyn are more nephrotoxic so we will continue to follow, will continue Lovenox because of risk of DVT prophylaxis. Disposition pending his clinical status. 2. Anemia with microcytic indices. I believe he may be iron but we are going to check his anemia labs and treat accordingly. DISPOSITION: Pending workup. cc: Kolton Cao MD MTDD
[2019-03-20] MEDS: NORCO-10 PO PRN ×2 (18:44→22:32)
[2019-03-20] MEDS: VANCOMYCIN 1,300 MG in NS 250 ML IV SCH (21:53)
[2019-03-21] MEDS: NORCO-10 PO PRN ×5 (06:11→23:04)
[2019-03-21] MEDS: LOVENOX SUBQ SCH (06:22)
[2019-03-21] MEDS: NS 1,000 ML IV SCH ×2 (06:25→22:25)
[2019-03-21 06:56] LABS: BASO# 0.04 X1000 (0.0-0.2); BASO% 0.5 % (0.0-0.8); EOS# 0.11 X1000 (0.0-0.7); EOS% 1.4 % (0.0-10.0); HEMOGLOBIN 7.6 g/dL (14.0-18.0); IMM GRAN# 0.03 X1000 (0.0-0.04); IMM GRAN% 0.4 % (0.0-0.5); LYMPH# 1.34 X1000 (1.2-3.4); LYMPH% 16.9 % (20.5-51.1); MCH 23.1 PG (27-31); MCHC 29.2 g/dL (33-37); MONO# 0.77 X1000 (0.11-0.59); MONO% 9.7 % (1.7-9.3); MPV 8.3 FL (7.4-10.4); NEUT# 5.65 X1000 (1.4-6.5); NEUT% 71.1 % (42.2-75.2); PLT 398 X1000 (130-400); RBC 3.29 XMIL (4.7-6.1); RDW 17.1 % (11.5-14.5); WBC 7.94 X1000 (4.8-10.8)
[2019-03-21 07:35] LABS: AGAP 10; BUN 5 mg/dL (8-22); CALCIUM 7.5 mg/dL (8.8-10.2); CHLORIDE 98 mmol/L (98-107); COSMO 263; CREATININE 0.4 mg/dL (0.7-1.2); ESTIMATED GFR > 60; GLUCOSE 79 mg/dL (70-104); IRON SATURATION 11 %; POTASSIUM 3.7 mmol/L (3.5-5.1); SODIUM 133 mmol/L (136-145); TCO2 25 mmol/L (25-35); TIBC 129 ug/dL; TOTAL IRON 14 ug/dL (53-167); UNBOUND IRON 115 ug/dL (112-346)
[2019-03-21 08:22] LABS: FERRITIN 171 ng/mL (30-400)
[2019-03-21] MEDS: MAXIPIME 1 GM in NS 50 ML IV SCH (09:11)
[2019-03-21] MEDS: KEPPRA PO SCH ×2 (09:11→22:25)
--- NOTE | 2019-03-21 10:55 | PROGRESS NOTE ---
DATE: 03/21/2019 SUBJECTIVE: The patient has no complaints. He is sitting up in the bed watching TV. He is awake and alert. OBJECTIVE: Vital Signs: Blood pressure is 112/66 with a heart rate of 100, respirations 20, temperature is 97.7 degrees with O2 saturations by nasal cannula running 97 to 98, O2 saturation room air 96%. Cardiovascular: Regular rate and rhythm. S1 and S2 appreciated. He has no murmur. Pulmonary: Breath sounds are clear with no increased work of breathing noted. Chest rises and falls symmetric with respiration. Chest wall is nontender to palpation. Gastrointestinal: Abdomen is soft, nontender, nondistended with bowel sounds in all 4 quadrants. Neurologic: He is alert and oriented x3. Skin: Is warm and dry. Dressing to right stump with Kerlix. It is clean, intact and dry. LABORATORY DATA: WBC is 7.9 with hemoglobin 7.6, hematocrit 26, and platelets of 398,000. Sodium 133, potassium 3.7, BUN 5, creatinine 0.4 with a glucose of 79. Folate is 10.7 with vitamin B12 459, iron is 14. PROBLEM LIST: 1. Cellulitis right above the knee amputation stump. We will continue antibiotics of Maxipime and vancomycin. Dr. Marie is following. Three-phase bone scan is pending to assess for osteomyelitis. 2. Methicillin-resistant Staphylococcus aureus, right leg osteomyelitis. We will continue with antibiotics as stated above. 3. Right lower lobe pneumonia in a patient with metastatic lung cancer who is currently receiving chemotherapy with the next round scheduled this week. We will continue with antibiotics as stated above. We will add incentive spirometer. 4. Anemia. Castleman disease diffuse. 5. Anemia. Check stool for blood. We will start iron. 6. History of seizure disorder. We will continue his Keppra. Dictated by LUKE Vega for Rodolfo Ludwig MD cc: LUKE Vega MD
[2019-03-21] MEDS: VANCOMYCIN 1,300 MG in NS 250 ML IV SCH (12:33)
--- NOTE | 2019-03-21 13:50 | Diag Imaging Result Doc PS360 ---
3 PHASE BONE SCAN - 03/21/2019 INDICATION: osteomyelitis TECHNIQUE: Three phase bone scan of the legs COMPARISON: CT from 03/18/2019 FINDINGS: There is normal perfusion of the right femoral stump and the left femur. On the blood pool phase images and the delayed phase images, there is extensive curvilinear hyperintense activity of the left distal femur. This is actually in the distribution of the superficial femoral vessels to a large extent. The reason is unclear. At the region of interest in the right femoral stump, there is no hyperintense activity on the blood pool phase images. There is very little hyperintense activity on the delayed phase images. IMPRESSION: 1. Nonspecific appearance of the right femoral remnant. No substantial abnormality to indicate definite osteomyelitis. 2. Unusual hyperintense activity of the left femoral vessel region. This could represent thrombophlebitis, vascular thrombosis or vascular calcification. No significant abnormality of the bone itself. Electronically signed by Carlos Enrique Reed 03/21/2019 1:48 PM
[2019-03-21] MEDS: ICAR-C PO SCH (15:18)
[2019-03-21] MEDS: KEFZOL 1 GM/D5W 1 GM/50 ML IVPB IV SCH ×2 (15:18→22:27)
--- NOTE | 2019-03-21 16:39 | INFECTIOUS DISEASE PROGRESS NO ---
DATE: 03/21/2019 PRESENT ILLNESS: Mr. Mejia has a right powfo-nji-uzwc amputation with a distal osteomyelitis. There is also a right lower lobe mass, abscess or loculated empyema. MEDICATIONS: He is receiving IV vancomycin per pharmacy dosing and cefepime 1 g IV every 12 hours. PHYSICAL EXAMINATION: Vital Signs: Temperature is 98.4 degrees, pulse rate 79, respiratory rate 20, blood pressure 92/53. O2 saturation 97% on room air. General: This is a chronically ill- appearing, malnourished, middle-aged male. He is lying in bed, currently in no acute distress. HEENT: Atraumatic, normocephalic. Oral mucous membranes are pink and moist. He does have p.o. poor dentition. Conjunctivae are pale. Neck: Has a noted hardened mass to the right anterior side which the patient states is cancer. Respiratory: Lung sounds are clear in the upper lobes. Diminished in the mid and bases. No work of breathing is noted. Cardiovascular: Heart rate and rhythm are regular. Normal sinus rhythm on the monitor. Abdomen: Soft, flat, nontender. Bowel sounds are active. Neurologic: He is awake, alert, and appropriate. Able to move all extremities with generalized weakness noted. Integumentary: Skin is warm and dry. There is an ulcerated lesion to the distal end of the right ycein-kli-ezae amputation which has some dry crusted, yellow drainage in the wound bed. LABORATORY AND X-RAY: Today, his white count is 7.94, hemoglobin 7.6, platelet count 398,000. Creatinine is 0.4, estimated GFR is greater than 60. His right hlbbf-arh-cnvo amputation has grown an oxacillin-sensitive Staphylococcus aureus. Blood cultures have show no growth after [address] of the chest done yesterday showed a right lower lobe bronchial mucous plugs with marked atelectasis as well as a vaguely rounded low-density focus in the right lower lobe that could be a mass, pulmonary abscess, or loculated empyema. ASSESSMENT/PLAN: Mr. Mejia is being treated for right hvisw-dvm-ydxw amputation osteomyelitis. He has grown an oxacillin-sensitive Staphylococcus aureus, so we will discontinue vancomycin and cefepime at this time. We have started him on Ancef 1 g IV every 8 hours. These plans have been discussed with and recommended by Dr. Bernal. COMORBIDITIES: For Mr. Mejia include cigarette smoking with emphysema, protein calorie malnutrition, gastroesophageal reflux disease, seizures, and metastatic lung cancer. Dictated by LUKE Bullock for Hemal Bernal MD cc: Hemal Bernal MD [facility]
--- NOTE | 2019-03-21 19:50 | GENERAL SURGERY PROGRESS NOTE ---
DATE: 03/21/2019 Mr. Jackie chatterjee has been treated for metastatic lung cancer. He has an ulceration on the tip of his right AK stump. It is really causing no significant problem. I think any operative intervention runs the risk of nonhealing. I think his bigger issue is his metastatic lung cancer and I think continued treatment of his lung cancer carries priority over trying to revise his right AK stump. cc: Mitchel Welch MD
[2019-03-22] MEDS: LOVENOX SUBQ SCH (06:02)
[2019-03-22] MEDS: NORCO-10 PO PRN ×4 (06:02→20:22)
[2019-03-22] MEDS: KEFZOL 1 GM/D5W 1 GM/50 ML IVPB IV SCH ×3 (06:02→22:10)
[2019-03-22 06:54] LABS: BASO# 0.03 X1000 (0.0-0.2); BASO% 0.4 % (0.0-0.8); EOS# 0.09 X1000 (0.0-0.7); EOS% 1.2 % (0.0-10.0); HEMATOCRIT 26.8 % (42.0-52.0); HEMOGLOBIN 7.9 g/dL (14.0-18.0); IMM GRAN# 0.02 X1000 (0.0-0.04); IMM GRAN% 0.3 % (0.0-0.5); LYMPH# 1.43 X1000 (1.2-3.4); MCHC 29.5 g/dL (33-37); MCV 78.1 FL (81-99); MONO# 0.75 X1000 (0.11-0.59); MONO% 9.9 % (1.7-9.3); MPV 8.2 FL (7.4-10.4); NEUT# 5.22 X1000 (1.4-6.5); NEUT% 69.2 % (42.2-75.2); PLT 394 X1000 (130-400); RBC 3.43 XMIL (4.7-6.1); RDW 17.4 % (11.5-14.5); WBC 7.54 X1000 (4.8-10.8)
[2019-03-22] MEDS ORDERED: CALMOSEPTINE OINTMENT TOP PRN (06:57)
[2019-03-22 07:16] LABS: AGAP 7; BUN 4 mg/dL (8-22); CALCIUM 7.4 mg/dL (8.8-10.2); CHLORIDE 99 mmol/L (98-107); COSMO 261; CREATININE 0.4 mg/dL (0.7-1.2); ESTIMATED GFR > 60; GLUCOSE 90 mg/dL (70-104); POTASSIUM 3.5 mmol/L (3.5-5.1); SODIUM 132 mmol/L (136-145); TCO2 26 mmol/L (25-35)
[2019-03-22] MEDS: ICAR-C PO SCH (09:27)
[2019-03-22] MEDS: KEPPRA PO SCH ×2 (09:27→20:22)
[2019-03-22] MEDS: CALMOSEPTINE OINTMENT TOP SCH ×4 (10:07→20:22)
[2019-03-22] MEDS: NS 1,000 ML IV SCH (13:26)
--- NOTE | 2019-03-22 13:41 | GENERAL SURGERY PROGRESS NOTE ---
DATE: 03/22/2019 I think his bigger priority is chemotherapy for his lung cancer. I think the ulceration on the tip of his right stump is a small problem. We will continue to follow along. I will speak with his other doctors but I am inclined to leave his stump alone and not interrupt his chemotherapy in any way. cc: Mitchel Welch MD
--- NOTE | 2019-03-22 13:47 | INFECTIOUS DISEASE PROGRESS NO ---
DATE: 03/22/2019 PRESENT ILLNESS: Mr. Mejia is being treated for distal osteomyelitis of his right vrggq-gcf-paxf amputation. There is an early oral candidiasis. MEDICATIONS: Yesterday, he was started on Ancef 1 g IV every 8 hours. He will need 6 weeks of treatment for the osteomyelitis. PHYSICAL EXAMINATION: Vital Signs: Temperature is 98.1 degrees, pulse rate 81, respiratory rate 20, blood pressure 99/55, O2 saturations 97% on room air. General: This is a chronically ill- appearing, middle-aged male. He is sitting up in bed, currently in no acute distress. HEENT: Atraumatic, normocephalic. Oral mucous membranes are pink and moist. The patient is complaining to some pain to his tongue. Poor dentition is noted. Conjunctivae are pale. Neck: A hard mass to the right anterior side which the patient states is cancer. Respiratory: Lung sounds are clear bilaterally in the upper lobes. Diminished in the mid and bases. No work of breathing is noted. Cardiovascular: Heart rate and rhythm are regular. Normal sinus rhythm on the monitor. Abdomen: Soft, flat, nontender. Bowel sounds are active. Integumentary: Skin is warm and dry. There is an ulcerated lesion to the distal end of the right nhwcg-pay-thxd amputation with some dry, yellow, crusted drainage in the wound bed. Neurologic: He is awake, alert, and oriented. Able to move around in the bed with generalized weakness noted. LAB/X-RAY: Today his white count is 7.54, hemoglobin 7.9, platelet count 394,000. Creatinine is 0.4, estimated GFR is greater than 60. His right leg wound grew an oxacillin- sensitive Staphylococcus aureus.. No imaging reports today. ASSESSMENT AND PLAN: Mr. Mejia has a right zxcam-tmg-vanh amputation osteomyelitis to the distal end, with an oxacillin-sensitive Staphylococcus aureus growing. He is receiving Ancef for the osteomyelitis, which he will need for a total of 6 weeks. He is also complaining of pain to his tongue, so I will start him on nystatin swish and swallow. Orders for PICC line insertion have also been put in for . The patient does have pulmonary lesions, which his oncologist is handling. These plans have been discussed with and recommended by Dr. Bernal. COMORBIDITIES: Include cigarette smoking with emphysema, protein calorie malnutrition, seizures, gastroesophageal reflux disease, and metastatic lung cancer. Dictated by LUKE Bullock for Hemal Bernal MD cc: Hemal Bernal MD [facility]
--- NOTE | 2019-03-22 17:22 | PROGRESS NOTE ---
DATE: 03/22/2019 SUBJECTIVE: The patient has no new complaints. He is awake. He is alert. He is answering my questions. He is following commands as well. I discussed with the patient his resuscitation status and he wants to be full code. Also, I discussed this with his kktbmio-pi-app by phone and they state that they will honor his wishes, since he wants to be full code. For now, we will continue with same management. OBJECTIVE: Vital Signs: Temperature 98.1 degrees, pulse 76, respiratory rate 18, blood pressure 111/70, oxygen saturation 97% on room air. HEENT: Head normocephalic, no trauma. Neck: Supple. He does have a mass on the right side of the neck and is painful to palpation with some irregularity at the base. It is pretty large, I would say 10 to 12 cm diameter. Chest: Chest wall is nontender to palpation. The sounds are clear with some crepitus bilaterally and scattered rhonchi. Abdomen: Soft, nontender, nondistended. No hepatosplenomegaly. Extremities: He does have right stump amputation with an open wound. No signs of secretion. Neurological: Alert and oriented x3. No focal deficits, but generalized weakness. LABORATORY: WBC 7.5, hemoglobin 7.9, hematocrit 26.8, platelet 394,000. Sodium 132, potassium 3.5, chloride 99, bicarbonate 26, BUN 4, creatinine 0.4, glucose 90, calcium 7.4. ASSESSMENT AND PLAN: 1. 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 This is infected with MSSA. He has been placed on antibiotics, Ancef. I will continue with the same management. 2. Lung cancer. I believe is bilaterally, per the patient, and has metastasized. This patient has his court usher/ oncologist already, is not one of our oncologists, though. As per the patient and the family, he has been getting chemotherapy and also he received some rounds of radiotherapy. As per the patient and the family, he will continue with treatment. He does have a big mass at the level of the right side of the neck and apparently he had one in his head/brain that has been removed. The patient is not quite sure what kind of cancer he has though. I contacted his family, especially his [id number] and he told me that he has stage IV lung cancer with metastasis to the neck, head and hip. When I asked them if they would allow me to call one of our oncologists, they state that they would like to talk to his oncologist first and probably this oncologist will call me to discuss the case. For now, they do not want a new oncologist to be on board home unless his oncologist agrees with that. 3. Right lower lobe pneumonia in a patient with metastatic lung cancer, receiving chemotherapy, with the next round scheduled at the end of this week. Continue with antibiotics. Infectious Disease Department on board. 4. Anemia, stable. 5. History of seizure disorder. Aware. 6. History of chronic obstructive pulmonary disease, not in exacerbation. 7. Gastroesophageal reflux disease. I will put this patient on proton pump inhibitors. 8. Chronic pain. Continue with pain medication. I discussed the case with the patient, and for now he wants to do everything. He agrees with long- term treatment with antibiotics including IV antibiotics and if he needs surgery he agreed with that as well. I discussed the case with the family by phone, especially his brother-in- law who states that he has metastatic lung cancer with metastasis to the hip and neck and also I discussed his advanced directive and this patient wants to be full code. I talked to him about it for about 50 minutes, maybe more, but he still wants to be full code, even though he has advanced stage lung cancer. As per the family, his oncologist will contact me. They do not want to get any new oncologist. They would like to discuss the case first with their oncologist. cc: Rodolfo Ludwig MD
[2019-03-23] MEDS: NORCO-10 PO PRN ×5 (03:52→20:03)
[2019-03-23] MEDS: LOVENOX SUBQ SCH (06:41)
[2019-03-23] MEDS: KEFZOL 1 GM/D5W 1 GM/50 ML IVPB IV SCH ×3 (06:41→22:28)
[2019-03-23] MEDS: PRILOSEC PO SCH (06:41)
[2019-03-23] MEDS: KEPPRA PO SCH ×2 (10:11→20:03)
[2019-03-23] MEDS: ICAR-C PO SCH (10:11)
[2019-03-23] MEDS: NS 1,000 ML IV SCH ×2 (10:33→13:55)
[2019-03-23] MEDS: CALMOSEPTINE OINTMENT TOP SCH ×4 (13:56→20:04)
[2019-03-23] MEDS: MYCOSTATIN SUSP PO SCH ×3 (13:57→20:03)
--- NOTE | 2019-03-23 17:11 | PROGRESS NOTE ---
DATE: 03/23/2019 SUBJECTIVE: No acute events overnight. He is he is complaining of pain around his tongue and mouth, he has some whitish plaques. He has been placed on nystatin four times a day. OBJECTIVE: Vital Signs: Temperature 98.5 degrees, pulse 70, respiratory rate 16, blood pressure 105/57, oxygen saturation 95% on room air. HEENT: Head normocephalic, no trauma. PERRLA. Neck: Supple. He does have a mass on the right side of his neck that is painful to palpation with some irregularity at the base, is actually large, around 10 to 12 cm in diameter. Chest: Clear to auscultation. His chest wall is nontender to palpation. Sounds are clear with some crepitus bilaterally and scattered rhonchi. Abdomen: Soft, nontender, nondistended. No hepatosplenomegaly. Extremities: He does have a right stump amputated with a wound at the end of the stump. I do not see any secretion, is slightly erythematosus. Neurological: The patient is awake, alert, and oriented x3. No focal deficits, but generalized weakness. LABORATORY: WBC 7.5, hemoglobin 7.9, hematocrit 26.8, platelet 394,000. Sodium 132, potassium 3.5, chloride 99, bicarbonate 26, BUN 4, creatinine 0.4, glucose 90, calcium 7.4. ASSESSMENT AND PLAN: 1. 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 This is infected with MSSA and he is getting antibiotics through his vein, Infectious Disease Department on board. The patient has decided to go ahead and receive complete treatment. He agreed with PICC line and IV antibiotics and even he is okay with surgery. Family members at the bedside and they agree with that as well as long as the patient is able to make his decisions. 2. Lung cancer, which has metastasized. This patient has his own senior procurement manager/oncologist. The family had requested not to get any of our senior procurement manager/oncologist and probably his doctor will call me. For now I will monitor. 3. Anemia, stable. 4. History of seizure disorder. Aware. 5. Oral thrush. I will put this patient on nystatin four times a day. 6. History of chronic obstructive pulmonary disease, not in exacerbation. 7. Gastroesophageal reflux disease. Continue proton pump inhibitors. 8. Chronic pain. Continue with pain medication. I have discussed the case with the patient and the family at the bedside, this patient agrees with treatment. He is okay if we need to place a PICC line and give him IV antibiotics long-term. Also, he is okay if he needs to get any kind of surgery. cc: Rodolfo Ludwig MD
[2019-03-24] MEDS: NORCO-10 PO PRN ×6 (00:06→20:51)
[2019-03-24] MEDS: LOVENOX SUBQ SCH (05:38)
[2019-03-24] MEDS: PRILOSEC PO SCH ×2 (05:38→06:23)
[2019-03-24] MEDS: KEFZOL 1 GM/D5W 1 GM/50 ML IVPB IV SCH ×5 (05:38→23:42)
[2019-03-24 06:42] LABS: BASO# 0.03 X1000 (0.0-0.2); BASO% 0.5 % (0.0-0.8); EOS# 0.09 X1000 (0.0-0.7); EOS% 1.4 % (0.0-10.0); HEMATOCRIT 23.7 % (42.0-52.0); HEMOGLOBIN 7.2 g/dL (14.0-18.0); IMM GRAN# 0.02 X1000 (0.0-0.04); IMM GRAN% 0.3 % (0.0-0.5); LYMPH# 1.47 X1000 (1.2-3.4); LYMPH% 23.5 % (20.5-51.1); MCH 23.8 PG (27-31); MCHC 30.4 g/dL (33-37); MCV 78.5 FL (81-99); MONO# 0.65 X1000 (0.11-0.59); MONO% 10.4 % (1.7-9.3); MPV 8.3 FL (7.4-10.4); NEUT% 63.9 % (42.2-75.2); PLT 350 X1000 (130-400); RBC 3.02 XMIL (4.7-6.1); RDW 17.2 % (11.5-14.5); WBC 6.26 X1000 (4.8-10.8)
[2019-03-24 06:53] LABS: INR 1.12; PROTIME 14.6 Seconds (11.0-16.0)
[2019-03-24 07:31] LABS: AGAP 10; BUN 5 mg/dL (8-22); CALCIUM 6.9 mg/dL (8.8-10.2); CHLORIDE 102 mmol/L (98-107); COSMO 269; CREATININE 0.3 mg/dL (0.7-1.2); ESTIMATED GFR > 60; GLUCOSE 88 mg/dL (70-104); POTASSIUM 3.2 mmol/L (3.5-5.1); SODIUM 136 mmol/L (136-145); TCO2 24 mmol/L (25-35)
[2019-03-24] MEDS: ICAR-C PO SCH ×2 (07:55→10:56)
[2019-03-24] MEDS: MYCOSTATIN SUSP PO SCH ×6 (07:55→20:51)
[2019-03-24] MEDS: KEPPRA PO SCH ×3 (07:56→20:51)
[2019-03-24] MEDS: CALMOSEPTINE OINTMENT TOP SCH ×5 (07:58→20:52)
[2019-03-24] MEDS ORDERED: NS 250 ML ONE (08:56)
[2019-03-24] MEDS: NS 1,000 ML IV SCH ×2 (10:51→15:00)
[2019-03-24] MEDS ORDERED: KLOR-CON PO ONE (11:10)
[2019-03-24] MEDS ORDERED: CALCIUM GLUCONATE 4.65 MEQ in NS 50 ML IV ONE (11:10)
--- NOTE | 2019-03-24 12:35 | INFECTIOUS DISEASE PROGRESS NO ---
DATE: 03/24/2019 PRESENT ILLNESS: The patient has an oxacillin sensitive Staph aureus osteomyelitis of the distal femur. The patient has had a right kzxiz-cql-fzoy amputation. The patient also has oral candidiasis. MEDICATIONS: The patient 2 days ago was started on Ancef 1 g IV every 8 hours. The patient will require 6 weeks of treatment for the patient's right femoral distal osteomyelitis. He requires 6 weeks of treatment with Ancef. The patient also has been started on Mycostatin swish and swallow. The patient reports that his mouth is feeling much better. PHYSICAL EXAMINATION: Vital Signs: Temperature is 97.6 degrees, pulse 87, respirations 14, blood pressure 111/52. General: This is a chronically ill-appearing, middle-aged male. He is in no acute distress. Head/eyes/ears/nose/throat: He can hear my spoken words and see near objects. He is missing most of his teeth and the teeth that he does have are in poor dental condition. There are a few white patches on the patient's tongue. The tongue is erythematous as is the back of the throat. Neck: No stiffness. There is a hard mass on the right side of the neck which most likely is his lung cancer. Lungs: Clear to auscultation. Cardiovascular: Heart rate is regular. Abdomen: Soft and nontender. Extremities: Patient had a PICC put in today on the right arm. The site is not bleeding. The patient's right leg shows at the distal end of it, there is no longer did any active drainage. There is an eschar present at the site of the distal knee. Neurologic: The patient is alert and oriented. He can move his extremities. There is no tremor. LAB AND X-RAY: CBC today shows a white count of 6260, hemoglobin 7.2, and platelet count 350,000. The patient's creatinine is 0.3. GFR is greater than 60. There is no new radiographic study. ASSESSMENT AND PLAN: The patient has an oxacillin sensitive Staph aureus osteomyelitis of the distal part of the patient's right femur where his amputation took place. My plan is to treat the patient's distal right osteomyelitis at the amputation site for 6 weeks with IV Ancef. Also, the patient has been started on nystatin swish and swallow for his oral candidiasis. COMORBIDITIES: The patient is a cigarette smoker and he has emphysema. He also has protein calorie malnutrition, seizures, gastroesophageal reflux, and metastatic lung cancer. cc: Hemal Bernal MD
--- NOTE | 2019-03-24 13:51 | PROGRESS NOTE ---
DATE: 03/24/2019 SUBJECTIVE: No acute events overnight. Actually, this patient seems to be feeling better. He is eating a little bit better as well. He got a PICC line placed because he is going to get a few weeks of intravenous antibiotics. Dr. Bernal is taking care of that. He lives with a roommate and this roommate is taking care of everything for him. Apparently they have a really good relationship. I will continue with same management. I will wait for Surgery Department decision to see if this patient will need to get any kind of surgery in that stump. OBJECTIVE: Vital Signs: Temperature 97.6 degrees, pulse 87, respiratory rate 14, blood pressure 111/52, oxygen saturation 96 on room air. HEENT: Head normocephalic, no trauma. PERRLA. Neck: Supple. He does have a mass on the right side of the neck that is painful to palpation. I believe it is a little bit irregular at the base. It is large; it is around 10 cm of diameter. Chest: Clear to auscultation. His chest wall is nontender. Sounds clear with some crepitus bilaterally and scattered rhonchi. Abdomen: Soft, nontender, nondistended. No hepatosplenomegaly. Extremities: He does have a right stump amputated with a wound at the end of the stump. I do not see any secretion. He is just slightly erythematous, but better. Neurological: The patient is awake, alert. He is oriented x3. No focal deficits, but generalized weakness. LABORATORY: WBC 6.2, hemoglobin 7.2, hematocrit 23.7, platelets 350. Sodium 136, potassium 3.2, chloride 102, bicarbonate 10. BUN 5, creatinine 0.3, glucose 88, calcium 6.9. ASSESSMENT AND PLAN: 1. 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 This is infected with methicillin-sensitive Staphylococcus aureus. He is getting antibiotics and today he got a PICC line placed. The plan is to keep this patient for a few days with antibiotics per Infectious Disease Department. 2. Lung cancer which has metastasized. He will need to continue with his plug paster/ oncologist as an outpatient. 3. Anemia, stable. Actually, the hemoglobin dropped to 7.2. I will give him a unit of blood. 4. History of seizure disorder. Aware. 5. Hypocalcemia. We will replace it. 6. Oral thrush. Continue with nystatin 4 times a day. 7. History of chronic obstructive pulmonary disease, not in exacerbation. 8. Gastroesophageal reflux disease. Continue with proton pump inhibitors. 9. Chronic pain. Continue pain medication. I have discussed the case with the patient and the family yesterday at the bedside, and the patient wants to get the whole treatment during this hospitalization, including IV antibiotics, PICC line, and if necessary also surgery. I will wait for the final surgery evaluation and recommendation to see if this patient can get some kind of treatment here, or he just can be sent home and follow up as an outpatient. cc: Rodolfo Ludwig MD
[2019-03-24] MEDS: NS 500 ML IV ONE ×2 (14:52→14:59)
[2019-03-25] MEDS: NORCO-10 PO PRN ×6 (01:37→22:56)
[2019-03-25] MEDS: KEFZOL 1 GM/D5W 1 GM/50 ML IVPB IV SCH ×3 (05:33→14:12)
[2019-03-25] MEDS: LOVENOX SUBQ SCH (05:33)
[2019-03-25] MEDS: PRILOSEC PO SCH ×2 (05:33→06:36)
[2019-03-25] MEDS: NS 1,000 ML IV SCH ×3 (05:44→20:38)
[2019-03-25 07:30] LABS: MAGNESIUM 1.7 mg/dL (1.5-2.7); PHOSPHORUS 1.8 mg/dL (2.7-4.5)
[2019-03-25 07:34] LABS: BASO# 0.03 X1000 (0.0-0.2); BASO% 0.4 % (0.0-0.8); EOS# 0.17 X1000 (0.0-0.7); EOS% 2.4 % (0.0-10.0); HEMATOCRIT 29.3 % (42.0-52.0); HEMOGLOBIN 8.9 g/dL (14.0-18.0); IMM GRAN# 0.02 X1000 (0.0-0.04); IMM GRAN% 0.3 % (0.0-0.5); LYMPH# 1.66 X1000 (1.2-3.4); LYMPH% 23.1 % (20.5-51.1); MCH 23.5 PG (27-31); MCHC 30.4 g/dL (33-37); MCV 77.5 FL (81-99); MONO# 0.77 X1000 (0.11-0.59); MONO% 10.7 % (1.7-9.3); MPV 8.6 FL (7.4-10.4); NEUT# 4.54 X1000 (1.4-6.5); NEUT% 63.1 % (42.2-75.2); PLT 368 X1000 (130-400); RBC 3.78 XMIL (4.7-6.1); RDW 17.2 % (11.5-14.5); WBC 7.19 X1000 (4.8-10.8)
[2019-03-25 07:38] LABS: AGAP 8; BUN 4 mg/dL (8-22); CALCIUM 7.2 mg/dL (8.8-10.2); CHLORIDE 101 mmol/L (98-107); COSMO 264; CREATININE 0.3 mg/dL (0.7-1.2); ESTIMATED GFR > 60; GLUCOSE 81 mg/dL (70-104); POTASSIUM 3.7 mmol/L (3.5-5.1); SODIUM 134 mmol/L (136-145); TCO2 25 mmol/L (25-35)
[2019-03-25] MEDS: ICAR-C PO SCH (08:07)
[2019-03-25] MEDS: CALMOSEPTINE OINTMENT TOP SCH ×4 (08:07→21:27)
[2019-03-25] MEDS: KEPPRA PO SCH ×2 (08:07→21:27)
[2019-03-25] MEDS: MYCOSTATIN SUSP PO SCH ×4 (08:07→21:27)
--- NOTE | 2019-03-25 10:57 | INFECTIOUS DISEASE PROGRESS NO ---
DATE: 03/25/2019 PRESENT ILLNESS: The patient has an oxacillin-sensitive Staphylococcus aureus osteomyelitis of the distal femur where the patient has had a right otjdy-kgy-oifl amputation performed. The patient also has oral candidiasis. MEDICATIONS: The patient currently is on Ancef 1 gram IV over 8 hours. The patient has had a total of 7 days of treatment with antibiotics for his osteomyelitis of the leg. The patient is receiving Mycostatin swish and swallow for his oral candidiasis. PHYSICAL EXAMINATION: Vital Signs: Temperature is 98.2 degrees, pulse 67, respirations 16, blood pressure is 112/70. General: This is a chronically ill-appearing middle-aged male. He is in no acute distress. Head/Eyes/Ears/Nose/Throat: He can hear my spoken words and see near objects. The patient does not have any white coating of his tongue today. Neck: The patient has a hard mass on the right side of the neck, which is caused by his lung cancer. Lungs: Clear to auscultation. Cardiovascular: Heart rate is regular. Abdomen: Soft and nontender. Extremities: The patient has a PICC in the right arm. The site is not erythematous or purulent. The patient's distal part of the right leg shows a wound that has filled in. It is not draining anymore. There is an eschar at the end of the bone. Neurologic: The patient is awake. He can move his extremities. LAB AND X-RAY: CBC shows a white count of 7190, hemoglobin 8.9, and platelet count 368,000 creatinine is 0.3. GFR is greater than 60. ASSESSMENT AND PLAN: I am going to change the patient to Rocephin 1 gram intravenously every 12 hours when he goes home. This will be for 5 more weeks because the patient has already had 1 week of treatment for his leg infection in the hospital. For now, I am going to continue the patient's nystatin swish and swallow. COMORBIDITIES: The patient has chronic obstructive pulmonary disease. He has protein calorie malnutrition. He is a cigarette smoker. He also has seizures and gastroesophageal reflux disease, and the patient has metastatic lung cancer. cc: Hemal Bernal MD
--- NOTE | 2019-03-25 14:14 | PROGRESS NOTE ---
DATE: 03/25/2019 SUBJECTIVE: No acute events overnight. Actually, this patient is feeling better. He had a PICC line placed. Antibiotics have been provided by Infectious Disease Department. Surgery has been following this patient. I do not think they are going to do any kind of procedure right now. They will just monitor this patient and continue with antibiotics. I do believe the only problem with this patient is placement. I think he lives in a trailer and he has a roommate, but I am not quite sure if the roommate can take care of this patient and his medications. dock worker on board. OBJECTIVE: Vital Signs: Temperature 98.8 degrees, pulse 76, respiratory rate 18, blood pressure 108/57, oxygen saturation 98 on room air. HEENT: Head normocephalic, no trauma. PERRLA. Neck: Supple. He does have a mass on the right side of his neck that is painful to palpation, and I believe it is a little bit irregular at the base. It is large, around 10 cm diameter. Chest: Clear to auscultation. Chest wall is nontender. Sounds are clear with some crepitus bilaterally and scattered rhonchi. Abdomen: Soft, nontender, nondistended. No hepatosplenomegaly. Extremities: He does have a right stump amputated with a wound at the end of the stump. I do not see any secretion. It is a bit erythematosus and painful to palpation. Neurological: The patient is awake, alert. He is oriented x3. No focal deficits but generalized weakness. LABORATORY DATA: WBC 7.1, hemoglobin 8.9, hematocrit 29.3, platelets 368,000. Sodium 134, potassium 3.7, chloride 101, bicarbonate 25, BUN 4, creatinine 0.3, glucose 81, calcium 7.2, phosphorus 1.8, magnesium 1.7. ASSESSMENT AND PLAN: 1. Right above the knee amputation, cellulitis with possible distal osteomyelitis. We have a positive culture that showed methicillin-sensitive Staphylococcus aureus. He is getting antibiotics, ceftriaxone, through his PICC line. Infectious Disease on board. 2. Lung cancer which has metastasized. He will need to continue with his dishwasher preparer/oncologist as an outpatient. 3. Anemia, status post 1 packed red blood cells, better. 4. History of seizure disorder. Aware. 5. Hypocalcemia. We will monitor. 6. Oral thrush. Continue with nystatin. 7. History of chronic obstructive pulmonary disease, not in exacerbation. 8. Gastroesophageal reflux disease. Continue proton pump inhibitors. 9. Chronic pain. Continue pain medication. Overall, this patient is doing better. I do not think Surgery Department will do any kind of surgical intervention at this moment. We will continue with antibiotics. I do believe the only problem that we have at this point is placement. I believe he lives in a trailer with a roommate, but I am not quite sure if the roommate can take care of this patient. cc: Rodolfo Ludwig MD
[2019-03-25] MEDS: ROCEPHIN 1 GM in NS 50 ML IV SCH (21:28)
[2019-03-26 07:13] LABS: BASO# 0.03 X1000 (0.0-0.2); BASO% 0.4 % (0.0-0.8); EOS% 1.3 % (0.0-10.0); HEMATOCRIT 30.6 % (42.0-52.0); HEMOGLOBIN 9.3 g/dL (14.0-18.0); LYMPH# 1.62 X1000 (1.2-3.4); LYMPH% 21.1 % (20.5-51.1); MCH 23.7 PG (27-31); MCHC 30.4 g/dL (33-37); MCV 78.1 FL (81-99); MONO# 0.66 X1000 (0.11-0.59); MONO% 8.6 % (1.7-9.3); MPV 8.4 FL (7.4-10.4); NEUT# 5.26 X1000 (1.4-6.5); NEUT% 68.6 % (42.2-75.2); PLT 354 X1000 (130-400); RBC 3.92 XMIL (4.7-6.1); RDW 17.6 % (11.5-14.5); WBC 7.67 X1000 (4.8-10.8)
[2019-03-26] MEDS: NORCO-10 PO PRN (07:27)
[2019-03-26] MEDS: NS 1,000 ML IV SCH (07:27)
[2019-03-26] MEDS: LOVENOX SUBQ SCH (07:28)
[2019-03-26] MEDS: PRILOSEC PO SCH (07:28)
[2019-03-26 08:02] LABS: AGAP 10; BUN 6 mg/dL (8-22); CALCIUM 7.9 mg/dL (8.8-10.2); CHLORIDE 101 mmol/L (98-107); COSMO 271; CREATININE 0.3 mg/dL (0.7-1.2); ESTIMATED GFR > 60; GLUCOSE 87 mg/dL (70-104); MAGNESIUM 1.7 mg/dL (1.5-2.7); PHOSPHORUS 2.2 mg/dL (2.7-4.5); POTASSIUM 3.8 mmol/L (3.5-5.1); SODIUM 137 mmol/L (136-145); TCO2 26 mmol/L (25-35)
[2019-03-26] MEDS: ROCEPHIN 1 GM in NS 50 ML IV SCH (08:52)
[2019-03-26] MEDS: MYCOSTATIN SUSP PO SCH (08:52)
[2019-03-26] MEDS: KEPPRA PO SCH (08:52)
[2019-03-26] MEDS: CALMOSEPTINE OINTMENT TOP SCH (08:52)
[2019-03-26] MEDS: ICAR-C PO SCH (08:52)
[2019-03-26 11:04] VITALS: BP 115/58
--- NOTE | 2019-03-27 16:52 | DISCHARGE SUMMARY ---
ADMISSION DATE: 03/18/2019 DISCHARGE DATE: 03/26/2019 DIAGNOSES: 1. Right wivdl-rnn-obho amputation cellulitis with possible distal osteomyelitis with a culture that showed methicillin-sensitive Staphylococcus aureus. 2. Lung cancer, which has metastasized. 3. Anemia, status post 1 unit of packed cells. 4. History of seizure disorder. 5. Oral thrush. 6. History of chronic obstructive pulmonary disease with no exacerbation. 7. Gastroesophageal reflux disease. 8. Chronic pain. CONSULTANTS: 1. Dr. Hemal Bernal, Infectious Disease. 2. Dr. Jun Marie, General Surgery. DIAGNOSTICS: 1. Chest x-ray revealed right basilar atelectasis and/or infiltrate, with a probable component of fibrosis similar to the previous study of 02/09/2019. 2. Lower extremity CT. Prior amputation of the right leg above the knee with irregularity of the bony stump that could be postsurgical. However, I suspect there is osteomyelitis as there is soft tissue edema at the stump, and the cortex of the bone is very near the skin surface if it is not already exposed. 3. CT of the chest revealed advanced pulmonary emphysema, right lower lobe bronchial mucous plugging with associated marked right lower lobe atelectasis. Vaguely rounded low-density focus in the right lower lobe that could represent a mass, pulmonary abscess, or loculated empyema. Suspicious spiculated nodule in the left upper lobe, nonspecific, mediastinal lymphadenopathy, expansile lytic lesion in the right iliac crest highly suspicious for neoplasm. 4. Nuclear bone scan 3 phase reveals nonspecific appearance of the right femoral remnant. No substantial abnormality to indicate definite osteomyelitis. MICROBIOLOGY: 1. Blood cultures x2 revealed no growth after 5 days. 2. Right knee wound culture revealed methicillin-sensitive Staphylococcus aureus. HOSPITAL COURSE: Mr. Mejia presented to the hospital due to a nonhealing ulcer to his right stump with drainage that ultimately grew out methicillin-sensitive Staphylococcus aureus for which he was initially treated with antibiotic coverage of vancomycin and Zosyn. After being seen by infectious disease, Zosyn was discontinued, and cefepime was started, and he is ultimately being discharged on Rocephin 1 g every 12 hours for [address] Bernal will manage antibiotics. A PICC line was placed for antibiotics. He was anemic, having hemoglobin of 7.2 and hematocrit 26, for which he received 1 unit of packed cells, and on the day of discharge, he was 9.3 and 30.6. DISCHARGE VITAL SIGNS: Blood pressure is 115/50, with heart rate of 77, respirations 18, temperature 98.5 degrees oral with room air saturations 95 to 97%. DISCHARGE PHYSICAL EXAMINATION: Cardiovascular: Regular rate and rhythm. S1 and S2 appreciated. Pulmonary: Breath sounds have some scattered rhonchi. Chest rises and falls symmetrically to respiration. Gastrointestinal: Abdomen is soft, nontender, nondistended. Bowel sounds in all 4 quadrants. Skin: Right stump does have a wound at the end of the stump. He has no drainage at present. [facility] will follow this on an outpatient basis. DISCHARGE MEDICATIONS: 1. [place] 10/325 one p.o. t.i.d. 2. Mycelex troches 5 times a day. 3. Tylenol 650 q.6 hours p.r.n. 4. Icar-C 1 p.o. daily. 5. Culturelle 1 p.o. b.i.d. 6. Keppra 500 mg p.o. b.i.d. 7. Prilosec 20 mg p.o. daily. 8. Ancef 1 g every 12 hours for 5 weeks, which will be followed by Linda and Dr. Hemal Bernal. FOLLOW-UP: 1. Dr. Hemal Bernal. He needs to call Thursday to schedule an appointment as instructed by Dr. Bernal. 2. Dr. Vazquez. He needs to follow up with his already scheduled appointment. 3. Dr. Marie in 3 to 4 weeks as needed. 4. He needs to follow up his oncologist is scheduled. He is being discharged home in stable condition with family members, being followed by [facility] in stable condition. TIME SPENT: This is a greater than 30 minute discharge. Dictated by LUKE Vega for Rodolfo Ludwig MD cc: LUKE Vega MD
== END 2019-03-26 12:23 | disposition home health service (06) ==
LOC: ED 12:36 → SUATTDRO 18:23 → EDIPHOLD 18:23 → 4N 19:45
PROVIDERS: ATTEND Internal Medicine